=== PATIENT | female | born 1985 | race Caucasian/White ===

== ENCOUNTER 2021-06-02 09:48 | Emergency (ER) | payer OTHER, SELFPAY ==
[2021-06-02 09:49] VITALS: BP 142/98; PULSE 87; RESP 16; TEMP 36.7; O2SAT 97; BMI 39.1
--- NOTE | 2021-06-02 10:17 | EKG12_ITS ---
Test Reason : CP Blood Pressure : / mmHG Vent. Rate : 066 BPM Atrial Rate : 066 BPM P-R Int : 136 ms QRS Dur : 092 ms QT Int : 368 ms P-R-T Axes : -04 028 007 degrees QTc Int : 385 ms Normal sinus rhythm with sinus arrhythmia Normal ECG Confirmed by DIONY GARCIA, LASHA ([id number]), rewrite editor ANA POLANCO ([id number]) on 06/07/2021 8:16:38 AM Referred By: GISELLE/LAKESHIA Confirmed By:DEISI VORA MD
--- NOTE | 2021-06-02 10:17 | RAD_ITS ---
STUDY: X-RAY CHEST REASON FOR EXAM: Female, 35 years old. chest pain TECHNIQUE: Single AP portable view of the chest. COMPARISON: None. FINDINGS: The lungs are clear and expanded. There is no demonstrated pleural abnormality. Normal size heart. Normal mediastinum and efrain. Normal visualized pulmonary arteries. Normal visualized aortic arch and descending thoracic aorta. Normal visualized thoracic spine. Normal visualized ribs, clavicles, and shoulders. There is no demonstrated abnormality of the visualized soft tissue structures of the upper abdomen. RAD/Chest 1 View (Portable) IMPRESSION: Normal x-ray examination of the chest. Electronically Signed: Harish Whitaker MD at 11:33 EDT Tel , Service support ,
[2021-06-02 10:43] LABS: Absolute Lymphocyte Count 0.94 X10^3/uL (0.83-4.51); Absolute Neutrophil Count 1.3 X10^3/uL (2.0-7.7); Basophil# 0.01 X10^3/uL; Basophil% 0.4 % (0-1); Eosinophil# 0.02 X10^3/uL; Eosinophils% 0.8 % (0-5); Hematocrit 38.8 % (37-47); Hemoglobin 11.4 g/dL (12.0-15.0); Lymphocyte # 0.94 X10^3/ul (0.83-4.51); Lymphocyte % 38.1 % (19-41); Mean Corp Hgb Conc 29.4 g/dL (32-36); Mean Corpuscular Hgb 21.2 pg (27.0-32.0); Mean Platelet Vol. 9.5 fl (6.2-12.0); Monocyte# 0.24 X10^3/uL; Monocyte% 9.7 % (0-10); NRBC Flagged by Analyzer 0 % (0-5); Neutrophil # 1.26 X10^3/uL (2.7-7.7); Platelet Count 176 K/mm3 (150-450); RBC Distribution Width CV 15.3 % (11.6-14.6); RBC Distribution Width SD 38.9 fl (35.1-43.9); Red Blood Count 5.39 M/mm3 (4.2-5.4); White Blood Count 2.5 K/mm3 (4.4-11.0)
[2021-06-02 10:59] LABS: Anion Gap 5 (5-15); BUN 12 mg/dL (7-18); BUN/Creat Ratio 16.6 RATIO (10-20); Calcium,Total 8.9 mg/dL (8.5-10.1); Chloride 107 mmol/L (98-107); Creatinine, Serum 0.72 mg/dL (0.55-1.02); EST Glomerular Filtration Rate 98 mL/min (>60); Est Glom Filt Rate - Afr Amer 118 mL/min (>60); Estimated Creatinine Clearance 102.09 ml/min; Glucose 91 mg/dL (74-106); Potassium 3.7 mmol/L (3.5-5.1); Sodium Level 139 mmol/L (136-145); Troponin-I HS 5 pg/mL (3.0-54.0)
[2021-06-02] MEDS: Aspirin 81 MG TAB.CHEW 324 MG PO (11:06)
[2021-06-02 11:11] VITALS: BP 130/92; PULSE 85; RESP 21; O2SAT 98
--- NOTE | 2021-06-02 12:20 | EX.ED.DYSGE1 ---
HPI History of Present Illness Chief Complaint: Chest Other Informant: patient Onset/Context/Timing Onset: Days (2) Context: Gradual Onset Timing: Continuous Quality: Pressure, burning Location: Bilateral chest, left worse than right Worsened by: Nothing Relieved by: Nothing Narrative Narrative: Patient presents with chest pain that has been constant for the past 2 days. Patient describes as a pressure and burning sensation. Patient states it is over her entire chest. Patient states it is somewhat worse on the left. Patient recently tested positive for COVID-19. Patient admits to a fever of 102. Patient admits to some shortness of breath and cough. Patient admits to nausea but denies any vomiting. Patient also admits to mild headache. Patient states nothing makes her chest pain worse and nothing makes it better. [facility] Medical History (Updated 06/02/21 @ 16:[address] Escobar Turner DO) History of Nulmc-Twdcewtss-Yhbph syndrome Allergy/AdvReac Type Severity Reaction Status Date / Time No Known Allergies Allergy Verified 06/02/21 09:51 Surgical History H/O cardiac radiofrequency ablation Social History Smoking Status: Never smoker ROS ROS ED Constitutional Constitutional ED: Reports fever(s); Denies chills Eyes Eyes: Denies blurry vision or change in vision ENT ENT ED: Denies rhinorrhea or sore throat Cardiovascular Cardiovascular: Reports chest pain; Denies palpitations Respiratory/Chest Respiratory/Chest: Reports cough and dyspnea Gastrointestinal Gastrointestinal: Reports nausea; Denies abdominal pain or vomiting Genitourinary Genitourinary ED: Denies dysuria or hematuria Musculoskeletal Musculoskeletal: Reports back pain; Denies neck pain Integumentary Denies abscess or rash Neurologic Neurologic: Reports headache(s); Denies weakness Allergic/Immunologic Allergic/Immunologic ED: Denies mouth swelling or urticaria EXAM Physical Exam Const Vital Signs: 06/02/21 09:49 06/02/21 11:11 06/02/21 12:35 Temperature 98.1 F Temperature Source Temporal Pulse Rate 87 85 87 Respiratory Rate 16 21 H 18 Respiratory Effort Normal Non-Labored Blood Pressure 142/98 H 130/92 H 118/78 Blood Pressure Mean 112 104 Pulse Ox 97 98 97 Oxygen Delivery Method Room Air Room Air Positive well nourished, well developed and obese General Appearance ED: well developed Nutritional Appearance: obese HEENT Reports moist mucous membranes Neck supple and no JVD Resp normal respiratory effort and clear to auscultation bilaterally Cardio regular rate, regular rhythm and no murmurs GI normal to inspection, nondistended, normoactive bowel sounds and non-tender Palpation: soft Extremity normal to inspection General Extremety ED: Negative for edema or tenderness General Extremity: Negative for edema Neuro oriented x3, CN's II-XII intact bilaterally and no sensory deficits noted Sensorium / Orientation: alert Motor Exam: strength 5/5 throughout Psych mental status grossly normal Skin no rashes or lesions noted MDM MDM MDM Narrative Medical decision making narrative: EKG was obtained. On my interpretation, it showed a normal sinus rhythm with a rate of 66. [place] interval, QRS interval, and QTc intervals were all normal. [place] was normal. There are no acute ST or T wave changes. Portable 1 view chest x-ray was obtained. On my interpretation, lung snow are clear. There is normal cardiac silhouette. Bony thorax is normal. There is no acute process noted. Radiologist also interpreted the x-ray and agrees. CBC was essentially within normal limits. Basic metabolic profile was normal. High-sensitivity troponin was normal. Patient was advised of her findings. Patient has a HEART score of 1. Patient was advised that this is low risk for acute cardiac event. Patient was advised that this could be some inflammation due to the COVID-19 virus. Patient was instructed to follow-up with her primary care physician in 5 to 7 days. Patient was instructed to take Tylenol or ibuprofen as needed for pain. Patient understood and was agreeable with the plan. All questions were answered. Lab Data Labs: Laboratory Results - last 24 hr 06/02/21 06/02/21 10:35 10:35 WBC 2.5 L RBC 5.39 Hgb 11.4 L Hct 38.8 MCV 72.0 L MCH 21.2 L MCHC 29.4 L RDW Std Deviation 38.9 RDW Coeff of Rosi 15.3 H Plt Count 176 MPV 9.5 Immature Gran % (Auto) 0.000 Neut % (Auto) 51.0 Lymph % (Auto) 38.1 [place] % (Auto) 9.7 Eos % (Auto) 0.8 Baso % (Auto) 0.4 Absolute Neuts (auto) 1.3 L Absolute Lymphs (auto) 0.94 Nucleated RBC % 0 Sodium 139 Potassium 3.7 Chloride 107 Carbon Dioxide 27.0 Anion Gap 5 BUN 12 Creatinine 0.72 Estim Creat Clear Calc 102.09 Est GFR (MDRD) Af Amer 118 Est GFR (MDRD) Non-Af 98 BUN/Creatinine Ratio 16.6 Glucose 91 Calcium 8.9 Troponin I High Sens 5 Radiography Chest X-Ray - ED: 1 View, Read by ED Physician, Read by Radiologist and Normal Diagnostic Testing: Radiology Impression Chest X-Ray 06/02/21 10:17 IMPRESSION: Normal x-ray examination of the chest. Electronically Signed: Harish Whitaker MD at 11:33 EDT Tel , Service support , EKG Initial EKG: Attestation: I personally reviewed and interpreted this EKG as follows: Interpretation: Sinus Rhythm (66) and No Acute Injury Pattern Prior EKG tracings: not available for review Discharge Plan Triage Chief Complaint: Chest Other ED Provider: Escobar Turner Dx/Rx/DC Orders Clinical Impression: Chest pain, COVID-19 Instructions: Coronavirus Disease 2019 (COVID-19): Caring for Yourself or Others, ED Chest Pain, Uncertain Cause Primary Care Provider: Care Physician,No Primary Referrals: Bianka Mancilla DO [STAFF PHYSICIAN] - 5-7 Days Care Physician,No Primary [Primary Care Provider] - Disposition Disposition: Home, Self Care Discharge Date/Time: 06/02/21 12:35
[2021-06-02 12:35] VITALS: BP 118/78; PULSE 87; RESP 18; O2SAT 97
== END 2021-06-02 12:35 | disposition home or self-care (01) ==
PROVIDERS: Emergency Provider Emergency Medicine
DX: U07.1 COVID-19 (principal); R07.89 Other chest pain
CPT/HCPCS: 71045; 80048; 84484; 85025; 93005; 99284